=== PATIENT | female | born 1945 | race Caucasian/White ===

== ENCOUNTER → 2023-09-21 08:58 | Outpatient (CLI) | payer MEDICARE, SELFPAY ==
--- OUTSIDE RECORDS SUMMARY | 2023-09-21 09:05 | XMS_ITS | Clinical Summary ---
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
[2023-09-21 10:26] LABS: Albumin Level 4.2 g/dl (3.5-5.0); Anion Gap 18.3 mEq/L (5-15); Blood Urea Nitrogen 20 mg/dl (7-17); Calcium 10.1 mg/dl (8.4-10.2); Carbon Dioxide 21 mmol/L (22.0-30.0); Chloride 105 mmol/L (98-107); Estimated Glomerular Filt Rate 60 ml/min (>60); GFR (African American) 73 ML/MIN (>60); Glucose 154 mg/dl (74-100); Phosphorous 3.7 mg/dl (2.5-4.5); Potassium 4.3 mmoL/L (3.5-5.1); Sodium 140 mmol/L (136-145)
[2023-09-21 10:40] LABS: Intact Parathyroid Hormone 23.7 pg/mL (7.5-53.5)
[2023-09-21 10:45] LABS: 25-OH Vitamin D, Total 37.2 ng/mL (30-100)
[2023-09-28 23:15] LABS: 1,25 Dihydroxy Vitamin D 37 pg/mL (.); 1,25-Dihydroxy, Vitamin D-2 <10 pg/mL (.); 1,25-Dihydroxy, Vitamin D-3 32 pg/mL (.)
== END ==
PROVIDERS: PCP Family Medicine; Visit Provider Physician Assistant
DX: E66.9 Obesity, unspecified (principal); M80.00XA Age-related osteoporosis with current pathological fracture, unspecified site, initial encounter for fracture; Z68.41 Body mass index [BMI] 40.0-44.9, adult
CPT/HCPCS: 36415; 80069; 82306; 82652; 83970

== ENCOUNTER 2023-12-06 09:39 | Outpatient (CLI) | payer MEDICARE, MEDICAID, SELFPAY ==
[2023-12-06 11:01] LABS: Albumin Level 4.5 g/dl (3.5-5.0); Blood Urea Nitrogen 19 mg/dl (7-17); Calcium 10.6 mg/dl (8.4-10.2); Carbon Dioxide 23 mmol/L (22.0-30.0); Chloride 108 mmol/L (98-107); Estimated Glomerular Filt Rate 60 ml/min (>60); GFR (African American) 73 ML/MIN (>60); Glucose 89 mg/dl (74-100); Phosphorous 3.9 mg/dl (2.5-4.5); Sodium 140 mmol/L (136-145)
[2023-12-06 11:13] LABS: Intact Parathyroid Hormone 26.9 pg/mL (7.5-53.5)
[2023-12-06 11:17] LABS: 25-OH Vitamin D, Total 26.2 ng/mL (30-100)
[2023-12-09 23:08] LABS: C-Telopeptide Serum 1039 pg/mL (.)
[2023-12-11 01:21] LABS: Tandem-R Ostase 43.6 ug/L (.)
[2023-12-11 10:57] LABS: 1,25-Dihydroxy, Vitamin D-2 <10
[2023-12-11 10:58] LABS: Miscellaneous Test SCANNED IMAGE
[2023-12-11 12:19] LABS: Serial Monitoring PDF SCANNED IMAGE
[2023-12-13 10:13] LABS: 1,25 Dihydroxy Vitamin D 35 pg/mL (.); 1,25-Dihydroxy, Vitamin D-3 32 pg/mL (.)
== END 2023-12-06 23:59 ==
PROVIDERS: Visit Provider Physician Assistant
DX: M80.00XA Age-related osteoporosis with current pathological fracture, unspecified site, initial encounter for fracture (principal)
CPT/HCPCS: 36415; 80069; 82306; 82523; 82652; 83970; 84080

== ENCOUNTER 2024-02-20 10:36 | Outpatient (CLI) | payer MEDICARE, MEDICAID, SELFPAY ==
[2024-02-20 12:13] LABS: Chloride 111 mmol/L (98-107)
[2024-02-20 12:14] LABS: Albumin Level 4.2 g/dl (3.5-5.0); Potassium 5.2 mmoL/L (3.5-5.1); Sodium 142 mmol/L (136-145)
[2024-02-20 12:17] LABS: Calcium 10.6 mg/dl (8.4-10.2); Glucose 95 mg/dl (74-100)
[2024-02-20 12:18] LABS: 25-OH Vitamin D, Total 31.5 ng/mL (30-100)
[2024-02-20 13:59] LABS: Anion Gap 15.2 mEq/L (5-15); Blood Urea Nitrogen 22 mg/dl (7-17); Carbon Dioxide 21 mmol/L (22.0-30.0); Estimated Glomerular Filt Rate 53 ml/min (>60); GFR (African American) 65 ML/MIN (>60); Phosphorous 4.3 mg/dl (2.5-4.5)
[2024-02-20 14:11] LABS: Intact Parathyroid Hormone 26.5 pg/mL (7.5-53.5)
[2024-02-22 14:33] LABS: Miscellaneous Test SCANNED IMAGE
[2024-02-22 17:05] LABS: Osteocalcin 83.4 ng/mL (.)
[2024-02-24 22:06] LABS: C-Telopeptide Serum 1273 pg/mL (.)
[2024-02-26 14:46] LABS: Tandem-R Ostase 31.4 ug/L (.)
[2024-02-28 07:57] LABS: Serial Monitoring PDF SCANNED IMAGE
[2024-03-06 09:16] LABS: 1,25 Dihydroxy Vitamin D 89 pg/mL (.); 1,25-Dihydroxy, Vitamin D-2 26 pg/mL (.); 1,25-Dihydroxy, Vitamin D-3 63 pg/mL (.)
== END 2024-02-20 23:59 | disposition home or self-care (01) ==
LOC: LAB 10:39
PROVIDERS: Visit Provider Physician Assistant
DX: M80.00XA Age-related osteoporosis with current pathological fracture, unspecified site, initial encounter for fracture (principal); G62.89 Other specified polyneuropathies
CPT/HCPCS: 36415; 80069; 82306; 82523; 82652; 83937; 83970; 84080

== ENCOUNTER 2024-06-05 09:30 | Outpatient (CLI) | payer MEDICARE, MEDICAID, SELFPAY ==
[2024-06-05 11:03] LABS: Albumin Level 4.5 g/dl (3.5-5.0); Blood Urea Nitrogen 23 mg/dl (7-17); Calcium 10.3 mg/dl (8.4-10.2); Carbon Dioxide 20 mmol/L (22.0-30.0); Chloride 109 mmol/L (98-107); Estimated Glomerular Filt Rate 53 ml/min (>60); GFR (African American) 65 ML/MIN (>60); Glucose 90 mg/dl (74-100); Phosphorous 3.8 mg/dl (2.5-4.5); Sodium 141 mmol/L (136-145)
[2024-06-10 02:28] LABS: Tandem-R Ostase 27.6 ug/L (.)
[2024-06-13 17:43] LABS: C-Telopeptide Serum 562 pg/mL (.)
[2024-06-23 15:43] LABS: Serial Monitoring PDF SCANNED IMAGE
== END 2024-06-05 23:59 | disposition home or self-care (01) ==
LOC: LAB 09:34
PROVIDERS: Visit Provider Physician Assistant
DX: M80.00XA Age-related osteoporosis with current pathological fracture, unspecified site, initial encounter for fracture (principal)
CPT/HCPCS: 36415; 80069; 82523; 84080

== ENCOUNTER 2024-08-25 09:25 | Outpatient (CLI) | payer MEDICARE, MEDICAID, SELFPAY ==
[2024-08-25 10:29] LABS: Albumin Level 4.4 g/dl (3.5-5.0); Anion Gap 13.8 mEq/L (5-15); Blood Urea Nitrogen 21 mg/dl (7-17); Calcium 10.3 mg/dl (8.4-10.2); Carbon Dioxide 22 mmol/L (22.0-30.0); Chloride 110 mmol/L (98-107); Estimated Glomerular Filt Rate 43 ml/min (>60); GFR (African American) 52 ML/MIN (>60); Glucose 89 mg/dl (74-100); Phosphorous 3.1 mg/dl (2.5-4.5); Potassium 4.8 mmoL/L (3.5-5.1); Sodium 141 mmol/L (136-145)
[2024-08-28 12:47] LABS: Tandem-R Ostase 18.2 ug/L (.)
[2024-08-31 23:25] LABS: C-Telopeptide Serum 607 pg/mL (.)
[2024-09-11 16:17] LABS: Serial Monitoring PDF SCANNED IMAGE
== END 2024-08-25 23:59 | disposition home or self-care (01) ==
LOC: LAB 09:28
PROVIDERS: Visit Provider Physician Assistant
DX: M80.00XA Age-related osteoporosis with current pathological fracture, unspecified site, initial encounter for fracture (principal)
CPT/HCPCS: 36415; 80069; 82523; 84080

== ENCOUNTER 2025-04-01 09:42 | Outpatient (CLI) | payer MEDICARE, MEDICAID, SELFPAY ==
[2025-04-01 11:25] LABS: Albumin Level 4.8 g/dl (3.5-5.0); Anion Gap 15.5 mEq/L (5-15); Blood Urea Nitrogen 19 mg/dl (7-17); Calcium 9.9 mg/dl (8.4-10.2); Carbon Dioxide 23 mmol/L (22.0-30.0); Chloride 109 mmol/L (98-107); Estimated Glomerular Filt Rate 60 ml/min (>60); GFR (African American) 73 ML/MIN (>60); Glucose 84 mg/dl (74-100); Phosphorous 3.3 mg/dl (2.5-4.5); Potassium 5.5 mmoL/L (3.5-5.1); Sodium 142 mmol/L (136-145)
[2025-04-01 11:39] LABS: 25-OH Vitamin D, Total 47.4 ng/mL (30-100)
[2025-04-03 14:26] LABS: Tandem-R Ostase 10.8 ug/L (.)
[2025-04-04 13:38] LABS: Serial Monitoring PDF SCANNED IMAGE
== END 2025-04-01 23:59 | disposition home or self-care (01) ==
LOC: LAB 09:44
PROVIDERS: PCP Family Medicine; Visit Provider Physician Assistant
DX: M80.00XA Age-related osteoporosis with current pathological fracture, unspecified site, initial encounter for fracture (principal)
CPT/HCPCS: 36415; 80069; 82306; 84080